=== PATIENT | male | born 1985 | race Caucasian/White ===

== ENCOUNTER 2021-09-25 07:50 | Day surgery (SDC) | payer BC ==
[2021-09-23 12:41] VITALS: BMI 30.1
[2021-09-25] MEDS ORDERED: Oxymetazoline HCl 0.05% (30 ML BOT) ONE ×2 (08:09→09:08)
[2021-09-25] MEDS ORDERED: Midazolam HCl 2 mg/2 ml Vial ONE (08:40)
[2021-09-25] MEDS ORDERED: EPINEPHrine 1 MG/ML AMP ONE (09:08)
[2021-09-25] MEDS ORDERED: SUGAMMADEX SODIUM 200 MG/2 ML VIAL ONE (09:10)
[2021-09-25] MEDS ORDERED: fentaNYL Citrate/PF 100 MCG/2 ML SYRINGE ONE (09:10)
[2021-09-25] MEDS ORDERED: Lidocaine 1% w/Epinephrine 1:100K 20 ML VIAL ONE (09:13)
[2021-09-25] MEDS ORDERED: Dexamethasone 20 MG/5 ML VIAL ONE (09:30)
[2021-09-25] MEDS ORDERED: PROPOFOL 200 MG/20 ML VIAL ONE (09:30)
[2021-09-25] MEDS ORDERED: Ondansetron PF 4 MG/2 ML Vial ONE (09:30)
[2021-09-25] MEDS ORDERED: Lidocaine 1% PF 5 ML VIAL ONE (09:30)
[2021-09-25] MEDS ORDERED: Rocuronium Bromide 10 MG/ML (10ML VIAL) ONE (09:30)
[2021-09-25] MEDS ORDERED: Bacitracin Zinc Ointment 30 gm TUBE ONE (10:00)
[2021-09-25] MEDS ORDERED: Triamcinolone 40 MG/ML VIAL ONE (10:08)
[2021-09-25] MEDS ORDERED: Fentanyl 100 MCG/2 ML VIAL ONE (11:16)
== END 2021-09-25 12:40 | disposition home or self-care (01) ==
LOC: SDC 07:50
PROVIDERS: ATTEND Specialist
PROC: 8E09XBZ Computer Assisted Procedure of Head and Neck Region (ICD-10-PCS; principal; 2021-09-25)
PROC: 09SM0ZZ Reposition Nasal Septum, Open Approach (ICD-10-PCS; principal; 2021-09-25)
PROC: 09BU8ZZ Excision of Right Ethmoid Sinus, Via Natural or Artificial Opening Endoscopic (ICD-10-PCS; principal; 2021-09-25)
PROC: 099W8ZZ Drainage of Right Sphenoid Sinus, Via Natural or Artificial Opening Endoscopic (ICD-10-PCS; principal; 2021-09-25)
PROC: 09BV8ZZ Excision of Left Ethmoid Sinus, Via Natural or Artificial Opening Endoscopic (ICD-10-PCS; principal; 2021-09-25)
PROC: 099Q8ZZ Drainage of Right Maxillary Sinus, Via Natural or Artificial Opening Endoscopic (ICD-10-PCS; principal; 2021-09-25)
PROC: 09BL8ZZ Excision of Nasal Turbinate, Via Natural or Artificial Opening Endoscopic (ICD-10-PCS; principal; 2021-09-25)
PROC: 099R8ZZ Drainage of Left Maxillary Sinus, Via Natural or Artificial Opening Endoscopic (ICD-10-PCS; principal; 2021-09-25)
PROC: 09BS8ZZ Excision of Right Frontal Sinus, Via Natural or Artificial Opening Endoscopic (ICD-10-PCS; principal; 2021-09-25)
PROC: 099X8ZZ Drainage of Left Sphenoid Sinus, Via Natural or Artificial Opening Endoscopic (ICD-10-PCS; principal; 2021-09-25)
PROC: 09BT8ZZ Excision of Left Frontal Sinus, Via Natural or Artificial Opening Endoscopic (ICD-10-PCS; principal; 2021-09-25)
DX: J32.4 Chronic pansinusitis (principal); J34.2 Deviated nasal septum; J34.3 Hypertrophy of nasal turbinates; J34.1 Cyst and mucocele of nose and nasal sinus; E78.00 Pure hypercholesterolemia, unspecified; Z79.899 Other long term (current) drug therapy
CPT/HCPCS: J0171; J1100; J2250; J2405; J2704; J3010; J3301